=== PATIENT | female | born 1990 | race Caucasian/White ===

== ENCOUNTER 2024-07-28 23:23 | Inpatient (IN) | payer BC ==
[2024-07-29] MEDS ORDERED: Lidocaine 1% 50 ML MDV INJECT PRN (00:13)
[2024-07-29] MEDS ORDERED: Sodium Chloride 0.9% 20 ML SDV IV PRN (00:13)
[2024-07-29] MEDS ORDERED: Methylergonovine 0.2 MG/1 ML Amp IM PRN (00:13)
[2024-07-29] MEDS ORDERED: Carboprost Tromethamine 250 MCG/1 mL Vial IM PRN (00:13)
[2024-07-29] MEDS ORDERED: Tranexamic Acid in NACL,ISO-OS 1,000 MG in Premix Bag 1 BAG IV PRN (00:13)
[2024-07-29] MEDS ORDERED: Water For Irrigation,Sterile 1,000 ML Container IRR PRN (00:13)
[2024-07-29] MEDS ORDERED: Sodium Chloride 0.9% 2.5 ML Syringe FLUSH PRN (00:13)
[2024-07-29] MEDS ORDERED: Butorphanol 2 MG/ML SDV IVPUSH PRN (00:13)
[2024-07-29] MEDS ORDERED: Sodium Chloride 0.9% 10 ML Syringe FLUSH PRN (00:13)
[2024-07-29] MEDS ORDERED: Misoprostol 200 MCG Tab PO PRN (00:13)
[2024-07-29] MEDS ORDERED: Oxytocin/0.9 % Sodium Chloride 30 UNIT/500 ML BAG IV SCH ×2 (00:15→23:30)
[2024-07-29 01:14] LABS: HEMATOCRIT 39.4 % (37.0-47.0); HEMOGLOBIN 14.3 g/dL (12.0-16.0); MEAN CORPUSCULAR HEMOGLOBIN 31.8 pg (28.0-32.0); MEAN CORPUSCULAR HGB CONC 36.3 g/dL (32.0-36.0); MEAN CORPUSCULAR VOLUME 87.8 fL (83.0-99.0); MEAN PLATELET VOLUME 11.1 fL (9.4-12.3); PLATELET COUNT,PLT 234 K/uL (150-400); RED BLOOD CELL COUNT 4.49 M/uL (4.10-5.30); WHITE BLOOD CELL COUNT,WBC 11.98 K/uL (3.9-11.3)
[2024-07-29 01:23] LABS: BILIRUBIN,URINE NEGATIVE (NEGATIVE); COLOR,URINE YELLOW; GLUCOSE,URINE NEGATIVE (NEGATIVE); KETONES,URINE NEGATIVE (NEGATIVE); LEUKOCYTE ESTERASE,URINE NEGATIVE (NEGATIVE); NITRITE,URINE NEGATIVE (NEGATIVE); OCCULT BLOOD,URINE SMALL (NEGATIVE); PH,URINE 5.5 (5.0-8.0); PROTEIN,URINE NEGATIVE (NEGATIVE); UROBILINOGEN,URINE 0.2 EU/dL (<2.0)
[2024-07-29 02:01] LABS: APPEARANCE,URINE HAZY
[2024-07-29 02:03] LABS: BACTERIA,URINE FEW (NEGATIVE); EPITHELIAL CELLS,URINE FEW (NONE-FEW); RBC,URINE 0-1 (0-2/HPF)
[2024-07-29 02:31] LABS: CREATININE,URINE RAND 43.9 mg/dL
[2024-07-29 02:36] LABS: A/G RATIO 0.7 (0.9-1.6); ALBUMIN 2.7 g/dL (3.4-5.0); BILIRUBIN TOTAL 0.2 mg/dL (0.2-1.0); CALCIUM 9.1 mg/dL (8.5-10.1); CARBON DIOXIDE,CO2 21.6 mmol/L (21.0-32.0); CREATININE 0.7 mg/dL (0.6-1.0); EST CRCL DRUG DOSING (CG) 91.91 mL/min; POTASSIUM,K 3.8 mmol/L (3.5-5.1); PROTEIN TOTAL,TP 6.6 g/dL (6.4-8.2)
[2024-07-29 02:38] LABS: PROTEIN,URINE RANDOM < 6.0 mg/dL (<11.9)
[2024-07-29] MEDS: Lactated Ringers 1,000 ML IV SCH (03:13)
[2024-07-29] MEDS: Oxytocin/0.9 % Sodium Chloride 30 UNIT/500 ML BAG IV SCH (03:17)
[2024-07-29] MEDS ORDERED: Phenylephrine HCl In 0.9% NaCl 1 MG/10 ML Syringe ONE (04:28)
[2024-07-29] MEDS ORDERED: Bupivacaine 0.5% 10 ML SDV ONE ×2 (04:28→23:24)
[2024-07-29] MEDS ORDERED: Ropivacaine HCl/PF 200 ML ONE (04:28)
[2024-07-29] MEDS: Ropivacaine HCl/PF 400 MG in Premix Bag 1 BAG EPIDUR SCH (04:47)
[2024-07-29] MEDS ORDERED: ePHEDrine 50 MG/ML SDV IM PRN (04:55)
[2024-07-29] MEDS ORDERED: Bupivacaine 0.5% 10 ML SDV INJECT ONE (04:55)
[2024-07-29] MEDS ORDERED: dexmedeTOMIDine HCl 200 MCG/2 ML SDV EPIDUR SCH (05:00)
[2024-07-29] MEDS: Terbutaline 1 MG/ML SDV SUBCUT PRN (05:15)
[2024-07-29] MEDS: Phenylephrine HCl In 0.9% NaCl 1 MG/10 ML Syringe IVPUSH PRN (05:28)
[2024-07-29] MEDS: ePHEDrine 50 MG/ML SDV IVPUSH PRN (06:54)
[2024-07-29] MEDS ORDERED: Sodium Chloride 0.9% 1,000 ML IRR SCH (11:45)
[2024-07-29] MEDS ORDERED: Bupivacaine 0.25% 10 ML SDV ONE (13:42)
[2024-07-29] MEDS ORDERED: Lidocaine 1% 2 ML ONE (13:42)
[2024-07-29] MEDS ORDERED: Ropivacaine 0.5% 5 MG/ML 30 ML SDV ONE (23:22)
[2024-07-29] MEDS ORDERED: Ketorolac 30 MG/ML SDV ONE (23:22)
[2024-07-29] MEDS ORDERED: EPINEPHrine 1 MG/1 ML Amp ONE (23:22)
[2024-07-29] MEDS ORDERED: Bupivacaine 0.25% 30 ML SDV ONE (23:22)
[2024-07-29] MEDS ORDERED: fentaNYL 100 MCG/2 ML SDV ONE (23:22)
[2024-07-29] MEDS ORDERED: Ondansetron 4 MG/2 ML SDV ONE (23:22)
[2024-07-29] MEDS ORDERED: Oxytocin 10 Units/1 ML SDV ONE (23:22)
[2024-07-29] MEDS ORDERED: Morphine PF 10 MG/10 ML SDV ONE (23:22)
[2024-07-29] MEDS ORDERED: ceFAZolin 1 GM Vial ONE (23:22)
[2024-07-29] MEDS ORDERED: Azithromycin 500 MG Vial ONE (23:24)
[2024-07-29] MEDS ORDERED: Lidocaine 2% 5 ML SDV ONE ×2 (23:24→23:50)
[2024-07-29] MEDS ORDERED: Azithromycin 500 MG in Sodium Chloride 0.9% 250 ML IV ONE (23:27)
[2024-07-29] MEDS ORDERED: Famotidine 20 MG Tab PO PRN (23:27)
[2024-07-29] MEDS ORDERED: ceFAZolin 2 GM in Sodium Chloride 0.9% 50 ML IV ONE (23:27)
[2024-07-29] MEDS ORDERED: Citric Acid/Sodium Citrate Solution 30 ML Cup PO ONE (23:27)
[2024-07-30] MEDS ORDERED: Albuterol 0.083% 2.5 MG/3 ML Neb Soln NEB PRN (01:22)
[2024-07-30] MEDS ORDERED: fentaNYL 50 MCG/ML SDV IVPUSH PRN (01:22)
[2024-07-30] MEDS ORDERED: Acetaminophen/oxyCODONE 325-5 MG Tab PO PRN (01:22)
[2024-07-30] MEDS ORDERED: Ondansetron 4 MG/2 ML SDV IVPUSH PRN ×3 (01:22→01:34)
[2024-07-30] MEDS ORDERED: Nalbuphine 10 MG/1 ML Vial IVPUSH PRN (01:22)
[2024-07-30] MEDS ORDERED: Metoclopramide 10 MG/2 ML SDV IVPUSH PRN (01:22)
[2024-07-30] MEDS ORDERED: diphenhydrAMINE 50 MG/ML SDV IVPUSH PRN (01:22)
[2024-07-30] MEDS ORDERED: Naloxone 0.4 MG/ML SDV IVPUSH PRN (01:22)
[2024-07-30] MEDS ORDERED: Morphine 2 MG/ML SYRINGE IVPUSH PRN (01:22)
[2024-07-30] MEDS ORDERED: Phenylephrine HCl In 0.9% NaCl 1 MG/10 ML Syringe IVPUSH PRN (01:22)
[2024-07-30] MEDS ORDERED: HYDROmorphone 1 MG/ML Syringe IVPUSH PRN (01:22)
[2024-07-30] MEDS ORDERED: fentaNYL 100 MCG/2 ML SDV IVPUSH PRN (01:22)
[2024-07-30 01:23] LABS: PH,UMBILICAL ARTERIAL 7.102 (7.18-7.38); PH,UMBILICAL VENOUS 7.139 (7.25-7.45)
[2024-07-30] MEDS ORDERED: ePHEDrine 50 MG/ML SDV ONE (01:25)
[2024-07-30] MEDS ORDERED: Phenylephrine HCl In 0.9% NaCl 1 MG/10 ML Syringe ONE (01:25)
[2024-07-30] MEDS ORDERED: Measles, Mumps & Rubella Vaccine 0.5 ML SDV SUBCUT ONE (01:34)
[2024-07-30] MEDS ORDERED: Misoprostol 200 MCG Tab RECTAL PRN (01:34)
[2024-07-30] MEDS ORDERED: Sodium Chloride 0.9% 2.5 ML Syringe FLUSH PRN (01:34)
[2024-07-30] MEDS ORDERED: Sodium Chloride 0.9% 10 ML Syringe FLUSH PRN (01:34)
[2024-07-30] MEDS ORDERED: oxyCODONE 5 MG Tab PO PRN (01:34)
[2024-07-30] MEDS ORDERED: Diphtheria,Pertussis(Acell),Tetanus Vaccine 0.5 ML Syringe IM ONE (01:34)
[2024-07-30] MEDS ORDERED: Lanolin 100% Cream 7 GM Tube TOP PRN (01:34)
[2024-07-30] MEDS ORDERED: Tranexamic Acid in NACL,ISO-OS 1,000 MG in Premix Bag 1 BAG IV ONE (01:34)
[2024-07-30] MEDS ORDERED: Carboprost Tromethamine 250 MCG/1 mL Vial IM PRN (01:34)
[2024-07-30] MEDS ORDERED: Naloxone 0.4 MG/ML SDV IVPUSH ONE (01:34)
[2024-07-30] MEDS ORDERED: Oxytocin/0.9 % Sodium Chloride 30 UNIT/500 ML BAG IV SCH (01:45)
[2024-07-30] MEDS ORDERED: Ketorolac 30 MG/ML SDV IVPUSH SCH (02:00)
[2024-07-30] MEDS ORDERED: Acetaminophen 1,000 MG in Premix Bag 1 BAG IV SCH (02:00)
[2024-07-30] MEDS: metroNIDAZOLE 250 MG Tab PO SCH (02:37)
[2024-07-30] MEDS: Acetaminophen 1,000 MG in Premix Bag 1 BAG IV PRN (02:42)
[2024-07-30] MEDS: Acetaminophen 500 MG Tab PO SCH (04:13)
[2024-07-30 06:44] LABS: BASOPHILS ABSOLUTE AUTO 0.03 K/uL (0.00-0.20); BASOPHILS PERCENT AUTO 0.1 % (0.0-1.0); HEMATOCRIT 33.6 % (37.0-47.0); HEMOGLOBIN 12.3 g/dL (12.0-16.0); IMMATURE GRAN ABSOLUTE AUTO 0.09 K/uL (0.00-0.05); IMMATURE GRAN PERCENT AUTO 0.4 % (0.0-0.4); LYMPHOCYTES ABSOLUTE AUTO 0.89 K/uL (1.00-4.80); LYMPHOCYTES PERCENT AUTO 4.3 % (24.0-44.0); MEAN CORPUSCULAR HEMOGLOBIN 32.1 pg (28.0-32.0); MEAN CORPUSCULAR HGB CONC 36.6 g/dL (32.0-36.0); MEAN CORPUSCULAR VOLUME 87.7 fL (83.0-99.0); MEAN PLATELET VOLUME 10.5 fL (9.4-12.3); MONOCYTES ABSOLUTE AUTO 1.14 K/uL (0.00-0.80); MONOCYTES PERCENT AUTO 5.5 % (0.0-8.0); NEUTROPHILS ABSOLUTE AUTO 18.57 K/uL (1.80-7.70); NEUTROPHILS PERCENT AUTO 89.7 % (41.0-71.0); PLATELET COUNT,PLT 195 K/uL (150-400); RED BLOOD CELL COUNT 3.83 M/uL (4.10-5.30); WHITE BLOOD CELL COUNT,WBC 20.72 K/uL (3.9-11.3)
[2024-07-30] MEDS: Cephalexin 500 MG Cap PO SCH (06:47)
[2024-07-30] MEDS: Ketorolac 30 MG/ML SDV IVPUSH SCH (06:47)
[2024-07-30] MEDS: Docusate Sodium 100 MG Cap PO SCH (09:23)
[2024-07-30] MEDS: Acetaminophen 1,000 MG in Premix Bag 1 BAG IV SCH (20:50)
[2024-07-31] MEDS ORDERED: oxyCODONE 5 MG Tab PO PRN (01:34)
[2024-07-31] MEDS: Acetaminophen 500 MG Tab PO SCH (04:14)
[2024-07-31 05:44] LABS: HEMOGLOBIN 10.2 g/dL (12.0-16.0); MEAN CORPUSCULAR HEMOGLOBIN 30.9 pg (28.0-32.0); MEAN CORPUSCULAR VOLUME 90.9 fL (83.0-99.0); MEAN PLATELET VOLUME 10.9 fL (9.4-12.3); PLATELET COUNT,PLT 177 K/uL (150-400); WHITE BLOOD CELL COUNT,WBC 16.45 K/uL (3.9-11.3)
[2024-07-31 06:29] LABS: A/G RATIO 0.6 (0.9-1.6); ALBUMIN 1.9 g/dL (3.4-5.0); BILIRUBIN TOTAL 0.3 mg/dL (0.2-1.0); CALCIUM 8.3 mg/dL (8.5-10.1); CARBON DIOXIDE,CO2 22.4 mmol/L (21.0-32.0); CREATININE 0.8 mg/dL (0.6-1.0); EST CRCL DRUG DOSING (CG) 80.42 mL/min; POTASSIUM,K 3.8 mmol/L (3.5-5.1); PROTEIN TOTAL,TP 5.1 g/dL (6.4-8.2)
[2024-07-31] MEDS: Ibuprofen 800 MG Tab PO SCH (06:53)
[2024-08-01 05:32] LABS: HEMATOCRIT 28.8 % (37.0-47.0); MEAN CORPUSCULAR HEMOGLOBIN 31.5 pg (28.0-32.0); MEAN CORPUSCULAR HGB CONC 34.7 g/dL (32.0-36.0); MEAN CORPUSCULAR VOLUME 90.9 fL (83.0-99.0); MEAN PLATELET VOLUME 11.2 fL (9.4-12.3); PLATELET COUNT,PLT 193 K/uL (150-400); RED BLOOD CELL COUNT 3.17 M/uL (4.10-5.30); WHITE BLOOD CELL COUNT,WBC 13.12 K/uL (3.9-11.3)
[2024-08-01 06:01] LABS: ALBUMIN 1.8 g/dL (3.4-5.0); BILIRUBIN TOTAL 0.3 mg/dL (0.2-1.0); CALCIUM 8.2 mg/dL (8.5-10.1); CARBON DIOXIDE,CO2 24.1 mmol/L (21.0-32.0); CREATININE 0.7 mg/dL (0.6-1.0); EST CRCL DRUG DOSING (CG) 91.91 mL/min; PROTEIN TOTAL,TP 5.1 g/dL (6.4-8.2)
[2024-08-01 06:02] LABS: A/G RATIO 0.6 (0.9-1.6)
== END 2024-08-01 13:50 | disposition home or self-care (01) | DRG 540 ==
LOC: MW.OBCHECK 23:23 → MW.OB 23:24 → MW.OBCHECK 07-29 00:13 → MW.OB 07-29 00:13 → OBSVTOIN 07-30 00:13 → MW.OB 07-30 06:05
PROVIDERS: ADMIT Obstetrics & Gynecology; ATTEND Obstetrics & Gynecology
PROC: 10D00Z1 Extraction of Products of Conception, Low, Open Approach (ICD-10-PCS; principal; 2024-07-30)
PROC: 3E0P7VZ Introduction of Hormone into Female Reproductive, Via Natural or Artificial Opening (ICD-10-PCS; 2024-07-30)
PROC: 3E0R3BZ Introduction of Anesthetic Agent into Spinal Canal, Percutaneous Approach (ICD-10-PCS; 2024-07-30)
PROC: 00HU33Z Insertion of Infusion Device into Spinal Canal, Percutaneous Approach (ICD-10-PCS; 2024-07-30)
PROC: 10H07YZ Insertion of Other Device into Products of Conception, Via Natural or Artificial Opening (ICD-10-PCS; 2024-07-30)
PROC: 10907ZC Drainage of Amniotic Fluid, Therapeutic from Products of Conception, Via Natural or Artificial Opening (ICD-10-PCS; 2024-07-30)
DX: O48.0 Post-term pregnancy (principal); O41.03X0 Oligohydramnios, third trimester, not applicable or unspecified; O99.214 Obesity complicating childbirth; E66.811 Obesity, class 1; O36.5930 Maternal care for other known or suspected poor fetal growth, third trimester, not applicable or unspecified; O13.4 Gestational [pregnancy-induced] hypertension without significant proteinuria, complicating childbirth; O62.1 Secondary uterine inertia; O76 Abnormality in fetal heart rate and rhythm complicating labor and delivery; O32.8XX0 Maternal care for other malpresentation of fetus, not applicable or unspecified; Z3A.40 40 weeks gestation of pregnancy; Z37.0 Single live birth
CPT/HCPCS: 01967; 01968; 36415; 51702; 59025; 64488; 76810; 76810-26; 80053; 81001; 82570; 82803; 84156; 85025; 85027; 86592; 86850; 86900; 86901; A9270-GY; J0131; J0171; J0456; J0665; J0690; J1100; J1885; J2274; J2371; J2405; J2590; J2795; J3010; J3490; J7120

== ENCOUNTER 2024-08-03 14:06 | Inpatient (IN) | payer BC ==
[2024-08-03 14:58] LABS: BASOPHILS ABSOLUTE AUTO 0.03 K/uL (0.00-0.20); BASOPHILS PERCENT AUTO 0.4 % (0.0-1.0); EOSINOPHILS ABSOLUTE AUTO 0.14 K/uL (0.00-0.45); HEMATOCRIT 32.5 % (37.0-47.0); HEMOGLOBIN 11.6 g/dL (12.0-16.0); IMMATURE GRAN ABSOLUTE AUTO 0.13 K/uL (0.00-0.05); IMMATURE GRAN PERCENT AUTO 1.9 % (0.0-0.4); LYMPHOCYTES ABSOLUTE AUTO 2.13 K/uL (1.00-4.80); LYMPHOCYTES PERCENT AUTO 30.4 % (24.0-44.0); MEAN CORPUSCULAR HGB CONC 35.7 g/dL (32.0-36.0); MEAN CORPUSCULAR VOLUME 89.8 fL (83.0-99.0); MEAN PLATELET VOLUME 10.3 fL (9.4-12.3); MONOCYTES ABSOLUTE AUTO 0.51 K/uL (0.00-0.80); MONOCYTES PERCENT AUTO 7.3 % (0.0-8.0); NEUTROPHILS ABSOLUTE AUTO 4.07 K/uL (1.80-7.70); PLATELET COUNT,PLT 277 K/uL (150-400); RED BLOOD CELL COUNT 3.62 M/uL (4.10-5.30); WHITE BLOOD CELL COUNT,WBC 7.01 K/uL (3.9-11.3)
[2024-08-03 15:25] LABS: BACTERIA,URINE RARE (NEGATIVE); EPITHELIAL CELLS,URINE OCCASIONAL (NONE-FEW); RBC,URINE 0-3 (0-2/HPF); WBC,URINE 0-5 (0-5/HPF)
[2024-08-03 15:27] LABS: A/G RATIO 0.6 (0.9-1.6); ALBUMIN 2.2 g/dL (3.4-5.0); BILIRUBIN TOTAL 0.3 mg/dL (0.2-1.0); CALCIUM 8.2 mg/dL (8.5-10.1); CARBON DIOXIDE,CO2 21.6 mmol/L (21.0-32.0); CREATININE 0.6 mg/dL (0.6-1.0); EST CRCL DRUG DOSING (CG) 107.23 mL/min; MAGNESIUM 1.9 mg/dL (1.8-2.4); POTASSIUM,K 3.5 mmol/L (3.5-5.1)
[2024-08-03 15:56] LABS: APPEARANCE,URINE HAZY; COLOR,URINE YELLOW; PH,URINE 6.5 (5.0-8.0); PROTEIN,URINE NEGATIVE (NEGATIVE)
[2024-08-03 15:57] LABS: BILIRUBIN,URINE NEGATIVE (NEGATIVE); GLUCOSE,URINE NEGATIVE (NEGATIVE); KETONES,URINE NEGATIVE (NEGATIVE); LEUKOCYTE ESTERASE,URINE SMALL (NEGATIVE); NITRITE,URINE NEGATIVE (NEGATIVE); OCCULT BLOOD,URINE LARGE (NEGATIVE); UROBILINOGEN,URINE 0.2 EU/dL (<2.0)
[2024-08-03] MEDS ORDERED: Sodium Chloride 0.9% 20 ML SDV IV PRN (17:17)
[2024-08-03] MEDS ORDERED: Sodium Chloride 0.9% 2.5 ML Syringe FLUSH PRN (17:17)
[2024-08-03] MEDS ORDERED: Sodium Chloride 0.9% 10 ML Syringe FLUSH PRN (17:17)
[2024-08-03] MEDS ORDERED: Calcium Gluconate 10% 1 GM/10 ML SDV IV PRN (17:17)
[2024-08-03 17:44] LABS: CREATININE,URINE RAND 21.6 mg/dL
[2024-08-03 17:50] LABS: PROTEIN,URINE RANDOM < 6.0 mg/dL (<11.9)
[2024-08-03] MEDS: Magnesium Sulfate/Water Premix 4 GM in Premix Bag 1 BAG IV ONE (18:00)
[2024-08-03] MEDS: Magnesium Sulfate/Water Premix 20 GM/500 ML BAG IV SCH (18:22)
[2024-08-03] MEDS: NIFEdipine 30 MG Tab.ER PO ONE (18:39)
[2024-08-03] MEDS ORDERED: oxyCODONE 5 MG Tab PO PRN (20:44)
[2024-08-03] MEDS: Acetaminophen 325 MG Tab PO PRN (22:30)
[2024-08-03] MEDS: Propranolol 40 MG Tab PO SCH (22:57)
[2024-08-04] MEDS: NIFEdipine 30 MG Tab.ER PO SCH ×2 (09:38→20:39)
[2024-08-04] MEDS: Docusate Sodium 100 MG Cap PO PRN (15:49)
[2024-08-04] MEDS: Ibuprofen 800 MG Tab PO PRN (20:52)
== END 2024-08-05 10:16 | disposition home or self-care (01) | DRG 561 ==
LOC: MW.ED 14:06 → MW.OB 17:12 → OBSVTOIN 17:18
PROVIDERS: ADMIT Obstetrics & Gynecology; ATTEND Obstetrics & Gynecology
DX: O13.5 Gestational [pregnancy-induced] hypertension without significant proteinuria, complicating the puerperium (principal); O99.355 Diseases of the nervous system complicating the puerperium; K21.9 Gastro-esophageal reflux disease without esophagitis; O99.63 Diseases of the digestive system complicating the puerperium; O99.215 Obesity complicating the puerperium; K58.9 Irritable bowel syndrome, unspecified; G43.909 Migraine, unspecified, not intractable, without status migrainosus; Z79.1 Long term (current) use of non-steroidal anti-inflammatories (NSAID); Z79.899 Other long term (current) drug therapy; Z88.0 Allergy status to penicillin; Z87.891 Personal history of nicotine dependence
CPT/HCPCS: 36415; 80053; 81001; 82570; 83735; 84156; 85025; 87086; 99221; 99231; 99238; 99284; A9270-GY; J3475